=== PATIENT | female | born 1980 | race Caucasian/White ===

== ENCOUNTER 2023-05-09 10:02 | Day surgery (SDC) | payer OTHER ==
[~2023-05-09 10:02] MED LIST: Lactated Ringers 1,000 ML IV SCH; Sodium Chloride 0.9% 10 ML Syringe FLUSH PRN; Sodium Chloride 0.9% 2.5 ML Syringe FLUSH PRN; Sodium Chloride 0.9% 20 ML SDV IV PRN
[2023-05-09] MEDS ORDERED: propofoL 50 ML ONE (12:20)
[2023-05-09] MEDS ORDERED: fentaNYL 100 MCG/2 ML SDV ONE (12:54)
== END 2023-05-09 13:50 | disposition home or self-care (01) ==
LOC: MW.SDS 10:02
PROVIDERS: ATTEND Surgery
DX: K63.5 Polyp of colon (principal); G89.29 Other chronic pain; F41.9 Anxiety disorder, unspecified; F32.A Depression, unspecified; F17.210 Nicotine dependence, cigarettes, uncomplicated; Z79.899 Other long term (current) drug therapy; Z88.5 Allergy status to narcotic agent
CPT/HCPCS: 45380; 81025; J2704; J3010; J7120; 00811